=== PATIENT | female | born 1970 | race Caucasian/White ===

== ENCOUNTER 2018-06-17 06:34 | Day surgery (SDC) | payer OTHER ==
[~2018-06-17 06:34] MED LIST: CEFAZOLIN 2 GM/50 ML (PMX) 50 ML IVPB; SOD CHLORIDE 0.9% 1,000 ML IV
[2018-06-17 10:49] LABS: ADD MAN DIFF? NO
[2018-06-17 10:50] LABS: BASOPHILS % 0.3 % (0.0-2.0); HEMATOCRIT 41.2 % (37.0-47.0); HEMOGLOBIN 14.1 g/dl (12.0-16.0); LYMPHOCYTES # 1.4 10^3/ul (0.8-2.9); LYMPHOCYTES % 20.7 % (15.0-51.0); MEAN CORPUSCULAR HEMOGLOBIN 30.3 pg (29.0-33.0); MEAN CORPUSCULAR HGB CONC 34.2 g/dl (32.0-37.0); MEAN CORPUSCULAR VOLUME 88.4 fl (82.0-101.0); MEAN PLATELET VOLUME 11.9 fl (7.4-10.4); MONOCYTE # 0.2 10^3/ul (0.3-0.9); MONOCYTES % 2.6 % (0.0-11.0); NEUTROPHIL # 5.2 10^3/ul (1.6-7.5); NEUTROPHILS % 76.1 % (39.0-77.0); PLATELET COUNT 190 10^3/UL (140-415); RED BLOOD COUNT 4.66 10^6/ul (4.20-5.40); RED CELL DISTRIBUTION WIDTH 12.8 % (11.5-14.5)
[2018-06-17 10:50] LABS: WHITE BLOOD COUNT 6.8 10^3/ul (4.8-10.8)
[2018-06-17] MEDS ORDERED: PROPOFOL 20 ML (10:54)
[2018-06-17] MEDS ORDERED: LIDOCAINE 2% (SDV) 5 ML INJ (10:54)
[2018-06-17] MEDS ORDERED: ONDANSETRON 4 MG INJ (10:54)
[2018-06-17] MEDS ORDERED: MEPERIDINE /PF (100 MG/2 ML) AMPULE (10:54)
[2018-06-17] MEDS ORDERED: CEFAZOLIN 1 GM INJ (10:54)
[2018-06-17] MEDS ORDERED: METOCLOPRAMIDE 10 MG INJ (10:54)
[2018-06-17] MEDS ORDERED: DIPHENHYDRAMINE 50 MG INJ IV (11:00)
[2018-06-17] MEDS ORDERED: MIDAZOLAM 1 MG/ML 2 ML INJ IV (11:00)
[2018-06-17] MEDS ORDERED: FENTAnyl 50 MCG/ML VIAL IV ×3 (11:00)
[2018-06-17] MEDS ORDERED: EPHEDrine SULFATE 50 MG/5 ML SYG IV (11:00)
[2018-06-17] MEDS ORDERED: METOCLOPRAMIDE 10 MG INJ IV (11:00)
[2018-06-17] MEDS ORDERED: HYDROmorphONE 1 MG/5 ML IV SYRINGE IV ×3 (11:00)
[2018-06-17] MEDS ORDERED: LABETALOL HCL 20MG INJ IV (11:00)
[2018-06-17] MEDS ORDERED: hydrALAzine 20 MG INJ IV (11:00)
[2018-06-17] MEDS ORDERED: OXYCODONE/ACETAMINOPHEN (5/325) TAB PO ×2 (11:00)
[2018-06-17 11:13] LABS: ALANINE AMINOTRANSFERASE 20 IU/L (13-69); ALBUMIN 4.5 g/dl (3.3-4.9); ALBUMIN/GLOBULIN RATIO 1.36; ALKALINE PHOSPHATASE 32 IU/L (42-121); ANION GAP 9 (5-13); ASPARTATE AMINO TRANSFERASE 18 IU/L (15-46); BILIRUBIN,INDIRECT 0.6 mg/dl (0-1.1); BILIRUBIN,TOTAL 0.6 mg/dl (0.2-1.3); BLOOD UREA NITROGEN 10 mg/dl (7-20); CALCIUM 9.2 mg/dl (8.4-10.2); CARBON DIOXIDE 24 mmol/L (21-31); CHLORIDE 108 mmol/L (97-110); CREATININE 0.58 mg/dl (0.44-1.00); Estimated GFR > 60 mL/min (>60); GLUCOSE 105 mg/dl (70-220); POTASSIUM 3.8 mmol/L (3.5-5.1); SODIUM 141 mmol/L (135-144); TOTAL PROTEIN 7.8 g/dl (6.1-8.1)
[2018-06-17 11:14] LABS: INR 0.93; PROTIME 12.5 Sec (11.9-14.9)
[2018-06-17 11:15] LABS: PARTIAL THROMBOPLASTIN TIME 26.8 Sec (23.0-35.0)
[2018-06-17] MEDS: BUPIVACAINE 0.25% (MPF) 30 ML INJ (11:37)
[2018-06-17] MEDS ORDERED: HYDROCODONE/APAP (5/325) TAB PO (12:00)
[2018-06-17] MEDS: MEPERIDINE 25 MG INJ IV (12:25)
[2018-06-17] MEDS: ONDANSETRON 4 MG INJ IV (12:25)
== END 2018-06-17 13:37 | disposition home or self-care (01) ==
LOC: SDS 06:34
DX: N60.12 Diffuse cystic mastopathy of left breast (principal)
CPT/HCPCS: 14001; 80053; 85025; 85610; 85730; 88307